=== PATIENT | male | born 1960 | race Caucasian/White ===

== ENCOUNTER 2017-05-14 07:17 | Inpatient (IN) | payer BC ==
[~2017-05-14] VITALS: Ht 172.7 cm; Wt 90.3 kg
[~2017-05-14 07:17] MED LIST: AML5T PO; ASPI81CH43 OR; CLOP75TA28 PO; CYCL-181 PO; FAMO-12 PO; HYDR-4683 PO; LORA1TAB12 PO; LOSA50TA6 PO; METO-158 PO; NITR0.4S29 SL
[2017-05-14] MEDS ORDERED: IOHEXOL 350 MG/ML 100ML IJ ONE ×2 (07:27→08:40)
[2017-05-14] MEDS ORDERED: LIDOCAINE 2%HCL (LOCAL ANESTH.) INJ 20ML MDV ONE (07:28)
[2017-05-14] MEDS ORDERED: VERAPAMIL 2.5MG/ML INJ 2ML VIAL IV ONE (07:34)
[2017-05-14] MEDS ORDERED: MIDAZOLAM HCL 1MG/1ML-2 ML VIAL ONE ×2 (07:34→08:24)
[2017-05-14] MEDS ORDERED: fentaNYL CITRATE 100 MCG/2 ML VL ONE (07:34)
[2017-05-14] MEDS ORDERED: ANGIOMAX 250 MG VIAL IV ONE (07:35)
[2017-05-14] MEDS ORDERED: SODIUM CHL 0.9% 50 ML ONE (07:35)
[2017-05-14] MEDS ORDERED: CLOPIDOGREL 300 MG TAB ONE (08:45)
[2017-05-14] MEDS ORDERED: ASPirin 325 MG TAB ONE (08:45)
[2017-05-14] MEDS ORDERED: HYDROcodone-ACET 5/325MG TAB ONE (09:13)
[2017-05-14] MEDS ORDERED: ONDANSETRON HCL 4 MG/2 ML VIAL IV PRN (09:30)
[2017-05-14] MEDS ORDERED: NITROGLYCERIN 0.4 MG SL TAB SL PRN (09:30)
[2017-05-14] MEDS ORDERED: MORPHINE SULFATE 10 MG/ML INJ 1ML SDV IV PRN (09:30)
[2017-05-14] MEDS ORDERED: ZOLPIDEM TARTRATE 5 MG TAB PO PRN (09:30)
[2017-05-14] MEDS ORDERED: NITROGLYCERIN 0.4 MG SL TAB SL SCH (09:30)
[2017-05-14] MEDS ORDERED: ACETAMINOPHEN 500 MG TAB PO PRN (09:30)
[2017-05-14 11:07] VITALS: BP 129/72
[2017-05-14] MEDS: FAMOTIDINE 20 MG TAB PO SCH (12:32)
[2017-05-14] MEDS: LOSARTAN POTASSIUM 50 MG TAB PO SCH (12:33)
[2017-05-14] MEDS: LORazepam 0.5 MG TAB PO SCH ×2 (13:28→23:09)
[2017-05-14] MEDS: SODIUM CHLOR 0.9% PF (SALINE LOCK) 10ML VIAL IV SCH ×2 (13:28→23:09)
[2017-05-14] MEDS: METOPROLOL TARTRATE 50 MG TAB PO SCH ×2 (13:29→23:10)
[2017-05-14] MEDS: HYDROcodone-ACET 5/325MG TAB PO PRN ×2 (13:29→20:01)
[2017-05-14] MEDS ORDERED: PATIENTS OWN MEDICATION (Lorazepam 1 TAB) PO SCH (14:00)
[2017-05-14 15:37] VITALS: BP 105/64
[2017-05-14 16:54] VITALS: BP 111/66
[2017-05-14] MEDS ORDERED: CYCLOBENZAPRINE HCL 10 MG TAB PO SCH (18:00)
[2017-05-14 22:00] VITALS: BP 113/66
[2017-05-15 05:00] VITALS: BP 114/63
[2017-05-15] MEDS: METOPROLOL TARTRATE 50 MG TAB PO SCH (06:00)
[2017-05-15] MEDS: LORazepam 0.5 MG TAB PO SCH (06:03)
[2017-05-15] MEDS: SODIUM CHLOR 0.9% PF (SALINE LOCK) 10ML VIAL IV SCH (06:03)
[2017-05-15] MEDS ORDERED: amLODIPine BESYLATE 5 MG TAB PO SCH (07:00)
[2017-05-15 09:00] VITALS: BP 119/69
[2017-05-15] MEDS: LOSARTAN POTASSIUM 50 MG TAB PO SCH (09:15)
[2017-05-15] MEDS: FAMOTIDINE 20 MG TAB PO SCH (09:16)
[2017-05-15 09:37] VITALS: BP 119/69
[2017-05-15] MEDS ORDERED: ASPirin 81 mg TAB PO SCH (10:00)
[2017-05-15] MEDS ORDERED: CLOPIDOGREL BISULFATE 75 MG TAB PO SCH (10:00)
== END 2017-05-15 12:10 | disposition home or self-care (01) | DRG 247 ==
LOC: CATH 07:17 → EAST 07:18 → TELE-WESTW 12:47
PROVIDERS: ADMIT Internal Medicine; ATTEND Internal Medicine
PROC: 027034Z Dilation of Coronary Artery, One Artery with Drug-eluting Intraluminal Device, Percutaneous Approach (ICD-10-PCS; principal; 2017-05-15)
PROC: 4A023N7 Measurement of Cardiac Sampling and Pressure, Left Heart, Percutaneous Approach (ICD-10-PCS; 2017-05-15)
PROC: B2111ZZ Fluoroscopy of Multiple Coronary Arteries using Low Osmolar Contrast (ICD-10-PCS; 2017-05-15)
DX: T82.855A Stenosis of coronary artery stent, initial encounter (principal); I11.9 Hypertensive heart disease without heart failure; I25.110 Atherosclerotic heart disease of native coronary artery with unstable angina pectoris; Y83.1 Surgical operation with implant of artificial internal device as the cause of abnormal reaction of the patient, or of later complication, without mention of misadventure at the time of the procedure; Z88.8 Allergy status to other drugs, medicaments and biological substances; Z82.49 Family history of ischemic heart disease and other diseases of the circulatory system; Z95.5 Presence of coronary angioplasty implant and graft; I25.2 Old myocardial infarction; Z79.82 Long term (current) use of aspirin
CPT/HCPCS: 99152; 99153; C1874; J2250